=== PATIENT | male | born 1935 | race Caucasian/White ===

== ENCOUNTER 2017-04-16 15:06 | Inpatient (IN) | payer MEDICARE, BC ==
[~2017-04-16] VITALS: Ht 177.8 cm; Wt 80.5 kg
--- NOTE | ~2017-04-16 | HP ---
PATIENT: ISHAN BENOIT MEDICAL RECORD: [id number] ACCOUNT: [id number] LOCATION:[address] : 37 ADMISSION DATE: 04/16/17 HISTORY AND PHYSICAL EXAMINATION DIAGNOSES: 1. Shortness of breath, dyspnea on exertion. 2. Edema. 3. Congestive heart failure, chronic systolic dysfunction. 4. Ischemic cardiomyopathy. 5. Coronary artery disease. 6. Previous PTCA stent. 7. Atrial fibrillation. 8. ICD. 9. Hypertension. HISTORY OF PRESENT ILLNESS: Mr. Benoit with decompensated congestive heart failure, shortness of breath along with chest pain and chest discomfort, has a past history of coronary artery disease, past history of ischemic cardiomyopathy. He reverted to atrial fibrillation 3 weeks ago, he was placed on anticoagulation. He has been on Xarelto anticoagulation for the past 3 weeks. We were planning on DC cardioversion; however, due to his decompensated state, we will admit for diuresis. Due to the angina and the coronary artery disease, we will proceed with cardiac catheterization as well as the DC cardioversion. PHYSICAL EXAMINATION: GENERAL APPEARANCE: Well-nourished, well-developed, appears stated age. Level of distress, comfortable. PSYCHIATRIC: Mental status, alert, normal affect. Orientation, oriented to time, place and person. EYES: Lids and conjunctiva, noninjected. No discharge, no pallor. ENT: Lips, teeth, gums, normal dentition. Oropharynx, no cyanosis, no pallor. NECK: Carotid arteries, bilateral normal upstroke, no bruits, no thrills. JUGULAR VEINS: No jugular venous pressure or distention. CERVICAL LYMPH NODES: Nontender, nonenlarged. THYROID: Not enlarged. Nontender. No nodules. LUNGS: He has bibasilar crackles compatible with pulmonary edema. CHEST: Normal curvature. No thoracic deformity. No chest wall tenderness. Percussion, resonant. Auscultation, clear. No wheezes, no rales, no rhonchi. CARDIOVASCULAR: Precordial exam, nondisplaced. No heaves or pericardial thrills. Rate and rhythm, regular. Heart sounds, normal S1, normal S2. No S3, no gallop, no rub. Systolic murmur, not heard. Diastolic murmur, not heard. EXTREMITIES: No cyanosis, +3 pitting edema. Peripheral pulses, full and equal in all extremities, except as noted. No bruits appreciated. ABDOMEN: Soft, nondistended. Normal aorta. No bruit. Nontender. No masses. Liver, nontender, no hepatomegaly. Spleen, nontender, no splenomegaly. MUSCULOSKELETAL: No joint tenderness. No joint swelling. No erythema. NEUROLOGICAL: Normal gait, normal strength, normal tone. SKIN: Warm and dry. REVIEW OF SYSTEMS: The patient reports easy bruising but reports no swollen glands. The patient reports no fever, no night sweats, no significant weight gain, no significant weight loss. No significant exercise tolerance. The patient reports no dry eyes, no irritation, no vision change. Patient reports HISTORY AND PHYSICAL [id number] CYISHAN WYATT no difficulty hearing and no ear pain. Patient reports no frequent nose bleeds or nose and sinus problems. Patient reports on arm pain on exertion. No shortness of breath while lying down. No history of heart murmur. Patient reports no cough, no wheezing or coughing up blood. Patient reports no abdominal pain, no vomiting. Normal appetite. No diarrhea and not vomiting blood. No nausea and no constipation. Patient reports no incontinence. No difficulty urinating. No hematuria. No increased frequency. Patient reports no muscle aches. No weakness, no arthralgias, no back pain. No swelling of the extremities. Patient reports no abnormal mole, no jaundice, no rashes. Reports no loss of consciousness. No weakness and no numbness. No seizures, dizziness, or headaches. The patient reports no depression, no sleep disturbance, feeling safe in a relationship and no alcohol abuse. Patient reports on fatigue. Reports no runny nose or sinus pressure. No itching, no hives, and no frequent sneezing. OVERALL IMPRESSION: Decompensated congestive heart failure with relatively new onset atrial fibrillation. He has been anticoagulated now greater than 3 weeks. We will proceed with DC cardioversion and we will also do cardiac catheterization to see if he has new hemodynamically significant coronary artery disease. TRANSINT:[id number] Voice Confirmation ID: [id number] DOCUMENT ID: [id number] COCO PARISH MD at 1323 CC: [id number] DICTATION DATE: 04/17/17 1113 RATE EXAMINER: 04/17/17 1128 DIS IN 04/18/17 [facility] [address] [facility] [place] [address]
--- NOTE | ~2017-04-16 | OP ---
PATIENT NAME: ISHAN BENOIT MEDICAL RECORD: [id number] :37 LOCATION:D.M2 D.2110 ADMISSION DATE:04/16/17 SURGEON: COCO PARISH MD DATE OF OPERATION: 04/17/2017 PROCEDURES: 1. DC cardioversion. 2. Left heart catheterization. 3. Selective coronary angiography. 4. Left ventriculogram. 5. Intravascular ultrasound. INDICATION: Angina, congestive heart failure, cardiomyopathy, atrial fibrillation. IV conscious sedation was per anesthesia. Continuous heart rate, O2 saturation, blood pressure monitoring were all undertaken, all of which remained stable. FINDINGS: He received 1 shock restoring sinus rhythm at 275 joules. Left ventriculogram was performed in standard 30-degree MARTINEZ view, reveals global hypokinesis throughout all segments. Overall ejection fraction estimated at 20%. SELECTIVE CORONARY ANGIOGRAPHY: 1. Left main is with no significant angiographic disease. 2. Left anterior descending has a previously placed stent proximally. There was a questionable stenosis; however, intravascular ultrasound reveals no significant restenosis. 3. Left circumflex has previously placed stents, these are widely patent with no significant restenosis. No disease elsewise throughout the left circumflex. 4. The right coronary is small, nondominant with no significant disease. OVERALL IMPRESSION: 1. No significant coronary artery disease is present. 2. Ischemic cardiomyopathy unchanged from previous evaluation. Ejection fraction 20%. 3. Successful DC cardioversion from atrial fibrillation to sinus rhythm. TRANSINT:[id number] Voice Confirmation ID: [id number] DOCUMENT ID: [id number] COCO PARISH MD at 1323 CC: [id number] DICTATION DATE: 04/17/17 1114 STATE'S ATTORNEY: 04/17/17 1159 DIS IN 04/18/17 [facility] [address] [place] [address]
--- NOTE | ~2017-04-16 | HEMODYNAMI ---
PATIENT:ISHAN BENOIT MEDICAL RECORD: [id number] : 39 LOCATION:[facility] D.2110 ADMISSION DATE: 04/16/17 Generatedon:04/17/201711:18 Patient name: ISHAN BENOIT Patient #: [id number] SSN: : 1935 Date of study: 04/17/2017 Page: Of Hemodynamic Procedure Report Patient Data Patient Demographics Procedure consent was obtained First Name: ISHAN Gender: Male Last Name: CY : 1935 Middle Initial: EDMUNDO Age: 82 year(s) Patient #: [id number] Race: Unknown Additional ID: [id number] Contact details Address: [address] [place] [address] State: [place] City: [place] Zip code: [address] Past Medical History Allergies Allergen Reaction Date Comments Reported Other allergy 04/17/2017 IODINE Admission Admission Data Admission Date: 04/16/2017 Admission Time: 15:06 Room #: D.0 Lab Results Lab Result Date: 04/17/2017 Lab Result Time: 3:50 Biochemistry Name Units Result Min Max BUN mg/dl 20 --(----)*- 7 18 Creatinine mg/dl 1.5 --(----)-* 0.6 1.3 CBC Name Units Result Min Max Hematocrit % 40.9 -*(----)-- 42 54 Hemoglobin g/dl 13.5 --(*---)-- 13.5 17.5 Procedure Procedure Types Cath Procedure Diagnostic Procedure C [facility] w/Coronaries Cardioversion Procedure Description Procedure Date Procedure Date: 04/17/2017 Procedure Start Time: 10:59 Procedure End Time: 11:17 Procedure Staff Name Function Joel Lopes MD Performing Physician Christine Bolton RT Monitor Lidia Martinez RT Scrub Aleks Soto MD Additional personnel Jules Valdez RN Nurse Procedure Data Cath Procedure Fluoroscopy Diagnostic fluoroscopy Total fluoroscopy Time: 2.1 time: 2.1 min min Diagnostic fluoroscopy Total fluoroscopy dose: 159 dose: 159 mGy mGy Contrast Material Contrast Material Type Amount (ml) Isovue 300 51 Entry Location Entry Primary Successful Side Size Upsize Upsize Entry Closure Seay ccessful Closure Location (Fr) 1 (Fr) 2 (Fr) Remarks Device Remarks Radial Right 6 Fr Mechanical TR BAND artery Short Compression Estimated blood loss: 5 ml Diagnostic catheters Device Type Used For End Catheter Placement DIAGNOSTIC [place] 110cm 5 Procedure Fr catheter ([id number]) Procedure Complications No complications Procedure Medications Medication Administration Route Dosage Oxygen NC 6 l/min 0.9% NaCl I.V. 100 ml/hr Heparin Flush Bag added to field 2 bags (1000units/500ml NS) Radial Cocktail added to field 1 syringe (Verapomil 2mg/Nitro 400mcg/Heparin 1500units) Radial Cocktail I.A. 1 syringe (Verapomil 2mg/Nitro 400mcg/Heparin 1500units) Refer to Anesthesia Notes for Sedation Medications Heparin Bolus I.V. 4000 units Hemodynamics Rest HGB: 13.5 (g/dl) Heart Rate: 82 (bpm) Snapshots Pre Cath Intra NCS Post Cath Vital Signs Time Heart Resp SPO2 etCO2 NIBP (mmHg) Rhythm Pain Sedation Rate (ipm) (%) (mmHg) Status Level (bpm) 10:50:14 87 17 99 0 145/97(123) NSR 0 (11) 10(A) , No pain 10:54:24 74 10 97 23.2 139/101(125) NSR 0 (11) 10(A) , No pain 10:58:40 81 5 99 17.9 138/82(122) NSR 0 (11) 10(A) , No pain 11:02:52 79 12 96 0 96/58(80) NSR 0 (11) 10(A) , No pain 11:06:57 80 10 89 0 94/57(73) NSR 0 (11) 10(A) , No pain 11:11:03 72 14 95 2.2 102/61(84) NSR 0 (11) 10(A) , No pain 11:15:09 76 17 93 21.7 113/70(94) NSR 0 (11) 10(A) , No pain 11:17:02 75 12 95 9.7 114/68(96) NSR 0 (11) 10(A) , No pain Medications Time Medication Route Dose Verified Delivered Reason Note s Effectiveness by by 10:55:23 Oxygen NC 6 l/min Joel Vicente Per physician Moses Valdez RN 10:55:32 0.9% NaCl I.V. 100 Joel Vicente Per physician ml/hr Moses Valdez RN 10:55:42 Heparin Flush added 2 bags Joel Vicente used for Bag to Moses Valdez RN procedure (1000units/500ml field NS) 10:55:53 Radial Cocktail added 1 Joel Vicente used for (Verapomil to syringe Moses Valdez RN procedure 2mg/Nitro field 400mcg/Heparin 1500units) 11:03:32 Radial Cocktail I.A. 1 Joel Vicente for (Verapomil syringe Moses Valdez RN vasodilation 2mg/Nitro 400mcg/Heparin 1500units) 11:05:58 Refer to Joel Vicente Anesthesia Notes Moses Valdez RN for Sedation Medications 11:07:24 Heparin Bolus I.V. 4000 Joel Vicente for units Moses Valdez RN anticoagulation Procedure Log Time Note 10:12:52 Plan of Care:Hemodynamics will remain stable., Cardiac rhythm will remain stable., Comfort level will be maintained., Respiratory function will remain adequate., Patient/ family verbilizes understanding of procedure., Procedure tolerated without complication., Recovers from procedure without complications.. 10:12:56 Time tracking: Regular hours 10:12:57 Signed procedure consent form obtained from patient. 10:18:59 Lidia Martinez RT(R) sent for patient. Start room use. 10:41:41 Patient received from Med II to CCL 3 Alert and oriented. Tansferred to table in Supine position. 10:41:42 Warm blankets applied, and zohra hugger turned on for patient comfort. 10:41:44 Correct patient and procedure confirmed by team. 10:41:45 ECG and BP/O2 sat monitors applied to patient. 10:49:14 Vital chart was started 10:53:27 Baseline sample Acquired. 10:53:33 Rhythm: atrial fibrillation 10:53:34 Full Disclosure recording started 10:53:38 Pre-procedure instructions explained to patient. 10:53:39 Pre-op teaching completed and patient verbalized understanding. 10:53:41 Family in patients room. 10:53:43 Patient NPO since Midnight. 10:54:02 Patient allergic to Other allergyIODINE 10:54:05 Is the patient allergic to Iodine/contrast media? Yes. 10:54:06 Was the patient premedicated? Yes 10:54:07 Is patient on blood thinner?Yes 10:54:10 ACC The patient was administered the following blood thiners within the last 24 hours: Xarelto 10:54:12 Patient diabetic? No. 10:54:19 Previous problem with sedation/anesthesia? No ? 10:54:20 Snore? Yes 10:54:22 Sleep apnea? No 10:54:23 Deviated septum? No 10:54:24 Opens mouth fully? Yes 10:54:25 Sticks out tongue? Yes 10:54:27 Airway obstruction? No ? 10:54:33 Dentures? Yes DENTURES OU 10:54:36 Modified Gentry's test Ulnar < 7 seconds 10:54:39 Patient pain scale 0/10 ?. 10:54:43 IV patent on arrival in left forearm with 0.9% NaCl at [facility]. 10:54:50 Lab results completed and on chart. 10:54:54 Right Radial & Right Groin area was prepped with chlora-prep and draped in sterile fashion 10:54:56 Alarms reviewed by R. N. 10:54:56 Sharps counted by scrub and verified by R.N. 10:54:58 --------ALL STOP TIME OUT------ 10:54:58 Final Timeout: patient, procedure, and site verified with staff and physician. All members of the team are in agreement. 10:55:00 Right Radial & Right Groin site verified by team. 10:55:04 Physical assessment completed. ASA score P 2 - A patient with mild systemic disease as per Joel Lopes MD. 10:55:07 Sedation plan: TIVA Medication:Propofol 10:55:23 Oxygen 6 l/min NC was administered by Jules Valdez RN; Per physician; 10:55:29 Quick Combo opened to sterile field. 10:55:32 0.9% NaCl 100 ml/hr I.V. was administered by Jules Valdez RN; Per physician; 10:55:33 Use device set Radial Dx or PCI 10:55:37 ACIST Syringe (31355) opened to sterile field. 10:55:38 Bag Decanter (2001S) opened to sterile field. 10:55:39 ACIST Hand Control (60896) opened to sterile field. 10:55:40 ACIST Manifold (83031) opened to sterile field. 10:55:41 Tegaderm 4 x 4 (1626W) opened to sterile field. 10:55:41 MBrace Wrist Support ([id number]) opened to sterile field. 10:55:42 Heparin Flush Bag (1000units/500ml NS) 2 bags added to field was administered by Jules Valdez RN; used for procedure; 10:55:42 Medline Cath Pack ([id number]) opened to sterile field. 10:55:43 SHEATH 6FR Slender ([id number]) opened to sterile field. 10:55:43 DIAGNOSTIC WIRE .035 260cm J wire (044519) opened to sterile field. 10:55:53 Radial Cocktail (Verapomil 2mg/Nitro 400mcg/Heparin 1500units) 1 syringe added to field was administered by Jules Valdez RN; used for procedure; 10:55:56 Aleks Soto MD present and monitoring patient for TIVA. 10:57:34 Procedure started. 10:58:04 Quick combo pads placed on patients chest and back. 10:59:09 Zero performed for pressure channel P1 10:59:50 Local anesthetic to right radial artery with Lidocaine 2% by Joel Lopes MD.INITIAL ACCESS ONLY 11:00:08 A 6 Fr Short sheath was inserted into the Right Radial artery 11:00:57 DEFIBRILLATOR SYNCED AND CHARGED TO 275 JOULES 11:01:00 Shock delivered. 11:01:23 Patient cardioverted to paced. 11:01:46 A DIAGNOSTIC [place] 110cm 5 Fr catheter (340095) was advanced over the wire and used for Procedure. 11:02:01 LV gram done using MARTINEZ 11:02:09 Injector settings: Ml/sec: 7, Volume: 15, 11:02:32 EF : 20 % 11:02:52 LCA angiography performed. 11:03:32 Radial Cocktail (Verapomil 2mg/Nitro 400mcg/Heparin 1500units) 1 syringe I.A. was administered by Jules Valdez RN; for vasodilation; 11:03:40 INFLATOR Merit BasixCompak (BE8055) opened to sterile field. 11:03:52 [place] Adger Eagleye IVUS Catheter (44261S) opened to sterile field. 11:04:03 RCA angiography performed. 11:04:05 Catheter removed. 11:05:45 GUIDE 6FR XBLAD 3.5 catheter (62462730) opened to sterile field. 11:05:58 Refer to Anesthesia Notes for Sedation Medications was administered by Jules Valdez RN; ; 11:05:59 CHOICE PT Extra Support 182cm wire ([id number]) opened to sterile field. 11:06:11 6 Fr XBLADE 3.5 guide catheter was inserted over the wire 11:06:14 CHOICE PT wire advanced. 11:06:18 Wire advanced across lesion. 11:06:47 IVUS catheter advanced over wire. 11:06:49 IVUS pass to LAD lesion performed. 11:07:21 IVUS catheter removed over wire. 11:07:24 Heparin Bolus 4000 units I.V. was administered by Jules Valdez RN; for anticoagulation; 11:08:38 Wire removed. 11:08:38 Guide catheter removed. 11:08:42 TR BAND Standard ([id number]) opened to sterile field. 11:08:47 Procedure ended.(Physican Out) 11:09:46 Sheath removed intact; hemostasis achieved with Mechanical Compression to the Right Radial artery. 11:09:54 Fluoroscopy time 02.10 minutes. 11:10:02 Fluoroscopy dose: 159 mGy 11:10:02 Flurop Dose total: 159 11:10:16 Contrast amount:Isovue 300 51ml. 11:10:17 Sharps counted by scrub and verified by R.N. 11:10:20 TR band inflated with 10cc of air. 11:10:24 Insertion/operative site no bleeding no hematoma. 11:10:29 Post-procedure physical assessment completed. ASA score P 2 - A patient with mild systemic disease as per Joel Lopes MD. 11:10:32 Post procedure rhythm: paced 11:10:34 Estimated blood loss: 5 ml 11:10:35 Post procedure instruction explained to patient.Patient verbalizes understanding. 11:10:36 Patient needs reinforcement of post procedure teaching. 11:12:14 Procedure and supply charges have been captured, reviewed, submitted and are correct. 11:12:16 Procedure Complication : No complications 11:17:21 Vital chart was stopped 11:17:22 See physician's report for complete and final results. 11:17:23 Report given to PCU. 11:17:26 Patient transfered to PCU with Bed. 11:17:27 Procedure ended. 11:17:27 Full Disclosure recording stopped 11:17:36 End room use (Document Last) Device Usage Item Name Manufacture Quantity Catalog Number Hospital Part Current Mini mal Lot# / Charge Number Stock Stock Serial# Code Quick Combo Edge Systems 1 [id number] 076832 270175 732511 5 ACIST Acist 1 02229 389504 260048 701912 20 Syringe Medical (01308) Systems Inc Bag Decanter Microtek 1 2002S 651493 59133 513104 5 (2002S) Medical Inc. ACIST Hand Acist 1 74884 287784 776328 474381 5 Control Medical (24206) Systems Inc ACIST Acist 1 76524 595740 317702 305916 5 Manifold Medical (65089) Systems Inc Tegaderm 4 x 3M 1 1626W 677174 616671 381363 5 4 (1626W) MBrace Wrist Advanced 1 140-0250-00 990039 33700 315338 5 Support Vascular (937033034) Dynamics Medline Cath Cardinal 1 [id number] 115147 57843 064788 5 Pack Health ([id number]) SHEATH 6FR Terumo 1 [id number] 932732 712156 413941 40 Slender (QINL1H09CO) DIAGNOSTIC St Shun 1 018608 021403 208473 322896 30 WIRE .035 260cm J wire (311268) DIAGNOSTIC Terumo 1 405013 468494 759873 112995 5 [place] 110cm 5 Fr catheter (290322) INFLATOR Merit 1 BT0796 381354 531629 636226 15 Fruition Partners Medical BasixCompak (PA6145) [place] 1 42156M 480773 448773 165399 8 Adger Eagleye IVUS Catheter (32677O) GUIDE 6FR Cardinal 1 [id number] 145329 461550 256644 10 XBLAD 3.5 Health catheter (87687346) CHOICE PT [place] 1 [id number] 207721 734447 178288 5 Extra Scientific Support 182cm wire ([id number]) TR BAND Terumo 1 [id number] 820663 815251 664919 40 Standard ([id number]) Signature Audit [place] Stage Time Signature Unsigned Intra-Procedure 04/17/2017 Christine Bolton 11:17:59 AM RT(R) Signatures Monitor : Christine Bolton Signature : RT Date : Time : [address] [place] [address]
--- NOTE | ~2017-04-16 | DS ---
PATIENT:ISHAN BENOIT :39 MEDICAL RECORD: [id number] DISCHARGE SUMMARY ADMISSION DATE: 04/16/17 DISCHARGE DATE: 04/18/17 DISCHARGE DIAGNOSES: 1. Heart failure. 2. Cardiomyopathy, ischemic, chronic, systolic dysfunction. 3. Sick sinus syndrome status post ICD pacer. 4. Coronary artery disease. 5. Edema. 6. Hypertension. 7. Atrial fibrillation. HOSPITAL COURSE: Mr. Benoit presents with decompensated congestive heart failure secondary to atrial fibrillation. He does have chronic systolic dysfunction. He underwent DC cardioversion, also underwent cardiac catheterization. No new coronary artery disease is present. He was continued on Cordarone, diuresed. Will follow up with [facility] in 3 weeks. TRANSINT:[id number] Voice Confirmation ID: [id number] DOCUMENT ID: [id number] COCO PARISH MD at 1323 CC: [id number] DICTATION DATE: 04/18/17 0850 FEATHER CURLING MACHINE OPERATOR: 04/18/17 1445 DIS IN 04/18/17 [address] [place] [address]
[2017-04-16] MEDS ORDERED: PROSCAR5 MG PO (15:46)
[2017-04-16] MEDS ORDERED: CORDARONE200 MG PO (15:47)
[2017-04-16] MEDS ORDERED: PRAVACHOL20 MG PO (15:48)
[2017-04-16] MEDS ORDERED: OMEPRAZOLE20 M1 PO (15:48)
[2017-04-16] MEDS ORDERED: ZESTORETIC 20-1 EACH PO (15:50)
[2017-04-16] MEDS ORDERED: MULTIPLE VITAMI1 TA1 PO (15:50)
[2017-04-16] MEDS ORDERED: FISH OIL 1,0001 CA1 PO (15:51)
[2017-04-16] MEDS ORDERED: ASPIRIN81 MG PO (15:52)
[2017-04-16] MEDS ORDERED: FIBER LAXATIVE500 MG PO (15:54)
[2017-04-16] MEDS ORDERED: XARELTO20 MG PO (15:55)
[2017-04-16 15:57] VITALS: BP 135/78; BMI 27.0
[2017-04-16 15:59] LABS: BASOPHILS 0.3 % (0-2); HEMATOCRIT 40.9 % (42.0-54.0); HEMOGLOBIN 13.5 g/dL (13.5-17.5); LYMPHOCYTES 18.3 % (15-50); MCH 31.1 pg (26.0-34.0); MCV 94.2 fL (80.0-100.0); MEAN PLATELET VOLUME 10.9 fL (7.4-10.4); MONOCYTES 12.4 % (2-11); PLATELET COUNT 108 10x3/uL (130-400); RBC 4.34 10x6/uL (4.20-6.10); RDW 13.5 % (11.5-14.5); WBC 3.9 10x3/uL (4.8-10.8)
[2017-04-16 16:20] LABS: ANION GAP 15.2 mmol/L (8-16); CARBON DIOXIDE 24.9 mmol/L (21.0-32.0); CREATININE - SERUM 1.5 mg/dL (0.6-1.3); POTASSIUM - SERUM 4.1 mmol/L (3.5-5.1)
[2017-04-16 17:04] VITALS: BP 135/78
[2017-04-16 20:46] VITALS: BP 127/73
[2017-04-16 23:44] VITALS: BP 130/72
[2017-04-17 04:46] VITALS: BP 138/84
[2017-04-17 09:33] VITALS: BP 122/88
[2017-04-17 10:45] VITALS: Ht 177.8 cm; Wt 80.5 kg
[2017-04-17 13:26] VITALS: BP 136/85
[2017-04-17 19:00] VITALS: BP 109/56
[2017-04-18 04:00] VITALS: BP 127/78
[2017-04-18 08:32] VITALS: BP 133/67
[2017-04-18] MEDS ORDERED: XARELTO20 MG PO (10:28)
== END 2017-04-18 12:20 | disposition home or self-care (01) | DRG 287 ==
LOC: D.M2 15:06
PROVIDERS: Internal Medicine Interventional Cardiology
PROC: 4A023N7 Measurement of Cardiac Sampling and Pressure, Left Heart, Percutaneous Approach (ICD-10-PCS; 2017-04-17)
PROC: B2111ZZ Fluoroscopy of Multiple Coronary Arteries using Low Osmolar Contrast (ICD-10-PCS; principal; 2017-04-17 11:30)
PROC: B2151ZZ Fluoroscopy of Left Heart using Low Osmolar Contrast (ICD-10-PCS; 2017-04-17 11:30)
DX: I11.0 Hypertensive heart disease with heart failure (principal); I48.91 Unspecified atrial fibrillation; I50.23 Acute on chronic systolic (congestive) heart failure; I25.5 Ischemic cardiomyopathy; I25.10 Atherosclerotic heart disease of native coronary artery without angina pectoris; Z95.810 Presence of automatic (implantable) cardiac defibrillator; Z95.5 Presence of coronary angioplasty implant and graft; Z79.01 Long term (current) use of anticoagulants

== ENCOUNTER 2017-04-28 13:05 | Emergency (ER) | payer MEDICARE, BC ==
[2017-04-17 10:45] VITALS: BMI 26.9
[~2017-04-28 13:05] MED LIST: ASPIRIN81 MG PO; CORDARONE200 MG PO; FIBER LAXATIVE500 MG PO; FISH OIL 1,0001 CA1 PO; MULTIPLE VITAMI1 TA1 PO; OMEPRAZOLE20 M1 PO; PRAVACHOL20 MG PO; PROSCAR5 MG PO; XARELTO20 MG PO; ZESTORETIC 20-1 EACH PO
[2017-04-28 14:27] LABS: BASOPHILS 0.8 % (0-2); HEMATOCRIT 43.3 % (42.0-54.0); HEMOGLOBIN 14.3 g/dL (13.5-17.5); IMMATURE GRANULOCYTES 0.2 % (0-5); LYMPHOCYTES 13.7 % (15-50); MCH 30.7 pg (26.0-34.0); MCV 92.9 fL (80.0-100.0); MEAN PLATELET VOLUME 10.7 fL (7.4-10.4); MONOCYTES 11.3 % (2-11); RBC 4.66 10x6/uL (4.20-6.10); RDW 13.7 % (11.5-14.5); WBC 5.9 10x3/uL (4.8-10.8)
[2017-04-28 14:29] LABS: PLATELET COUNT 135 10x3/uL (130-400)
[2017-04-28 14:34] LABS: APPEARANCE CLOUDY (CLEAR); BILIRUBIN NEGATIVE (NEGATIVE); COLOR BROWN (YELLOW); GLUCOSE NEGATIVE (NEGATIVE); KETONE NEGATIVE (NEGATIVE); NITRITE NEGATIVE (NEGATIVE); PROTEIN 3+ mg/dL (NEGATIVE); UROBILINOGEN NORMAL (NORMAL)
[2017-04-28 14:36] LABS: BACTERIA FEW /hpf (NONE SEEN); EPITHELIAL CELLS 0-5 /hpf (0-5); RED CELLS - URINE 25-50 /hpf (0-5)
[2017-04-28 14:43] LABS: APTT 51.2 SECONDS (22.8-39.4); INR 2.7 (0.85-1.17); PROTIME 27.6 SECONDS (11.6-15.0)
[2017-04-28 16:00] LABS: ALBUMIN 3.3 g/dL (3.4-5.0); ANION GAP 14.2 mmol/L (8-16); BILIRUBIN - TOTAL 0.59 mg/dL (0.2-1.3); CALCIUM 8.6 mg/dL (8.5-10.1); CREATININE - SERUM 1.3 mg/dL (0.6-1.3); POTASSIUM - SERUM 3.2 mmol/L (3.5-5.1); PROTEIN - SERUM 6.6 g/dL (6.4-8.2)
[2017-04-28 16:30] LABS: TROPONIN-I 0.022 ng/mL (0.000-0.060)
== END 2017-04-28 17:39 | disposition home or self-care (01) ==
LOC: D.ER 13:05
PROVIDERS: Family Medicine; Nurse Practitioner Family
DX: R31.9 Hematuria, unspecified (principal); Z79.01 Long term (current) use of anticoagulants; I25.10 Atherosclerotic heart disease of native coronary artery without angina pectoris; I10 Essential (primary) hypertension; K21.9 Gastro-esophageal reflux disease without esophagitis

== ENCOUNTER 2018-05-21 07:56 | Day surgery (SDC) | payer MEDICARE, BC ==
[~2018-05-21] VITALS: Ht 177.8 cm; Wt 81.2 kg
[2018-05-21 08:28] LABS: HEMOGLOBIN 13.8 g/dL (13.5-17.5); MCH 31.3 pg (26.0-34.0); MCHC 32.9 g/dL (31.0-37.0); MCV 95.2 fL (80.0-100.0); MEAN PLATELET VOLUME 11.4 fL (7.4-10.4); RBC 4.41 10x6/uL (4.20-6.10); RDW 14.5 % (11.5-14.5); WBC 4.7 10x3/uL (4.8-10.8)
[2018-05-21 08:32] LABS: ANION GAP 10.3 mmol/L (8-16); CALCIUM 8.4 mg/dL (8.5-10.1); CARBON DIOXIDE 31.2 mmol/L (21.0-32.0); CREATININE - SERUM 1.4 mg/dL (0.6-1.3); POTASSIUM - SERUM 3.5 mmol/L (3.5-5.1)
[2018-05-21 08:58] LABS: APTT 22.6 SECONDS (22.8-39.4); INR 1.21 (0.85-1.17); PROTIME 14.8 SECONDS (11.6-15.0)
[2018-05-21] MEDS ORDERED: LEVOXYL75 MCG PO (09:04)
[2018-05-21 09:07] VITALS: BP 121/65; Ht 177.8 cm; Wt 81.2 kg
--- NOTE | 2018-05-22 18:49 | OP ---
PATIENT NAME: ISHAN BENOIT MEDICAL RECORD: [id number] :39 LOCATION:D.OPS ADMISSION DATE: SURGEON: SILVER KISER MD DATE OF OPERATION: 05/21/2018 SURGEON: Silver Kiser MD ANESTHESIA: General, Dr. Victor. OPERATION PERFORMED: Automatic implantable cardiac defibrillator generator change. PREOPERATIVE DIAGNOSIS: Cardiomyopathy. POSTOPERATIVE DIAGNOSIS: Cardiomyopathy. INDICATION FOR OPERATION: Pulse generator end of life. FINDINGS OF THE OPERATION: The removed defibrillator, serial number [id number]. Newly implanted pulse generator Medtronic, model number [id number], serial number [id number]. P-wave 3.3, threshold 0.5 volts. Right ventricular lead: R-wave 3.0, impedance 299 ohms, HVB 34, HVX 41. Pacing threshold 0.5. ESTIMATED BLOOD LOSS: Less than 3 cc. DESCRIPTION OF PROCEDURE: After informed consent, adequate preoperative medication evaluation, the patient was brought to the operating room, placed on the table in the supine position. After induction of general anesthesia and application of appropriate monitoring devices, the left chest prepped and draped in sterile field, utilizing Betadine scrub, alcohol, and Betadine solution. Betadine-impregnated drape was also used, 1% lidocaine was infiltrated over the device as well as in the pocket. An incision was made. Dissection carried down the pocket. The old device was explanted. The pacemaker pocket was extended medially and inferiorly. Hemostasis was assured. The new device was then attached to the leads and analyzed. They were satisfactory. The pocket was irrigated. Instrument count and sponge count were correct times 2. The pocket was closed in layers utilizing 3-0 Vicryl on deep subcutaneous tissue, 3-0 Vicryl on superficial subcutaneous tissue, and skin approximated with 5-0 subcuticular Monocryl. Sterile dressings were applied. The patient tolerated the procedure well and transferred to postanesthesia recovery in satisfactory condition. TRANSINT:[id number] Voice Confirmation ID: [id number] DOCUMENT ID: [id number] SILVER KISER MD at 1849 CC: [id number] DICTATION DATE: 05/21/18 1221 DRAWER WAXER: 05/21/18 1252 [facility] 05/21/18 [facility] [address] [place] [address]
== END 2018-05-21 14:30 | disposition home or self-care (01) ==
LOC: D.OPS 07:56
PROVIDERS: Internal Medicine Cardiovascular Disease
DX: Z45.02 Encounter for adjustment and management of automatic implantable cardiac defibrillator (principal); I42.9 Cardiomyopathy, unspecified; Z01.812 Encounter for preprocedural laboratory examination